=== PATIENT | female | born 1940 | race African-American/Black ===

== ENCOUNTER 2025-08-01 10:38 | Outpatient (AMB) | payer OTHER, SELFPAY ==
--- OUTSIDE RECORDS SUMMARY | 2024-12-14 05:30 | XMS_ITS ---
Author Organization [facility] Address [address] [place] [address] Care Team Providers Care Apartment Maintenance Supervisor Name Role Phone Darryn Mayberry Primary Care Provider Sarah Downs [phone] Encounters Encounter Location Date Provider Diagnosis [address] [address] 12/14/2024 Sarah Blanco Plan Of Treatment Next Appt Details Provider Name:Sarah rainey, 08/06/2025 10:00:00 AM, [address] [place], [address], Progress Notes * Kevin MORRISON MDOB:[birth year] (85 yo F)Acc No.[id number]:12/14/2024 Progress Note Patient: Artis PARISjoshua Schneider Provider: Phillip Blanco DPM :1940 A ge:84 Y S ex:Female Date:12/14/2024 Address:[address] [place], [place] [phone] Pcp:Darryn Mayberry Subjective: * Chief Complaints: * [...] 0 12/14/2024 Generated for Printi ng/Italia/Paigeitting on: 0 08/01/2025 01:18 PM EDT
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
[2025-08-01 10:47] VITALS: BP 120/62; PULSE 54
--- OUTSIDE RECORDS SUMMARY | 2025-08-01 13:18 | XMS_ITS | Patient Health Record ---
Author Organization [facility] Address [address] [place] [address] Care Team Providers Care Paint Spray Tender Name Role Phone Darryn Mayberry Primary Care Provider Sarah Downs Unavailable [phone] Allergies Allergen (clinical drug ingredient) Drug/Non Drug Allergy documented on EMR Reaction Allergy Type Onset Date Status oxycodone OxyContin stomach issues Drug Allergy Ac tive acetaminophen / oxycodone Percocet Unknown Drug Allergy Active Adhesive Unknown Allergy Active Latex Latex Unknown Allergy Active morphine Morphine Unknown Drug Allergy Active Perfume Perfume Unknown Allergy Active Reason For Referral No Information Medications Medication SIG (Take, Route, Frequency, Duration) Notes Start Date End Date Status Tylenol Arthritis Pain Not-Taking Eucerin . as directed External ly Apply Twice a day to Feet; Duration: 30 days 08/05/2015 Not-Taki ng Xarelto Not-Taking Orthopedic Extra Depth Shoes With Custom Heat Molded Multidensity Innersoles as directed Wear Daily; Duration: as needed 02/01/2020 Not-Taking Warfarin Sodium 6 MG Oral; Duration: 30 Not-Taking Omeprazole Not-Takin g Pravastatin Sodium 40 MG Oral; Duration: 30 Not-Taking Aspirin 81 MG 1 tablet Orally Once a day Not-Taking Doxycycline Hyclate 100 MG Oral; Duration: 2 Not-Taking Warfarin Sodium 5 MG 1 tablet Orally Onc e a day 08/02/2015 Not-Taking Erythromycin Not-Yury ing Coumadin Not-Taking Fluticasone Propionate 50 MCG/ACT Nasal; Duration: 30 PRN Active traMADol HCl 50 MG Oral; Duration: 3 Not-Taking Ibuprofen 600 MG Oral; Duration: 14 PRN Active Cephalexin 500 MG Oral; Duration: 5 Not-Taking Xarelto Not-Taking Diclofenac Sodium 50 MG Oral; Duration: 10 Not-Taking Ammonium Lactate 12 % APPLY 1 APPLICATIO N TO AFFECTED AREA TWICE A DAY EXTERNALLY TO FEET; Duration: 30 Active Sulfamethoxazole-TMP DS 800-160 MG Oral; Duration: 7 Not-Taking Immunizations Vaccine Route Administration Date Status Comme nts Influenza Unknown 08/24/2024 Administered COVID-19 Moderna Vaccine Unknown 02/24/2021 Administered 1st vaccine 01/06 03/28 Social History Tobacco Use: Social History Observation Description Date Details (start date - stop date) Never Smoker NA - NA Tobacco use other than smoking: Question Answer Notes Are you an other tobacco user? No Tobacco Control (Standard) Question Answer Notes Tobacco use: Nonsmoker Additional Findings: Tobacco non-user Current no nsmoker AUDIT-C (Standard) Question Answer Notes Did you have a drink containing alcohol in the p ast year? No Points 0 Interpretation Negative Problems Problem Type SNOMED Code ICD Code Onset Dates Problem Status W/U Status Risk Notes Problem Bilateral atherosclerosis of arteries of lower limbs (disorder) (19725559852792383 ) Unspecified atherosclerosis of [place] arteries of extremities, bilateral legs (I70.203) Active confirmed Problem Acquired hammer toe of left foot (9415386951647517) Other hammer toe(s) (acquired), left foot (M20.42) Active confirmed Problem Bilateral peripheral neuropathy of lower limbs (82639108612745004 ) Neuropathy (G62.9) Active confirmed Problem Localized, primary osteoarthritis of the ankle and/or foot (144801173) Arthritis of joint of lesser toe, left (M19.072) Active confirmed Vital Signs Blood pressure diastolic 80 mm Hg 05/14/2025 Height 5 ft 4 in in 05/14/2025 Blood pressure systolic 136 mm Hg 05/14/2025 Weight 222 lbs 05/14/2025 BMI 38.1 kg/m2 05/14/2025 Encounters Encounter Location Date Provider Diagnosis [facility] [place] [address] 10/02/2024 Sarah Blanco Other hammer toe(s) (acquired), left foot M20.42 ; Tinea unguium B35.1 ; Unspecified atherosclerosis of [place] arteries of extremities, bilateral legs I70.203 ; Pain in right toe(s) M79.674 ; Neuropathy G62.9 and Pain in left toe(s) M79.[address] [address] 12/18/2024 Sarah Blanco Other hammer toe(s) (acquired), left foot M20.42 ; Tinea unguium B35.1 ; Unspecified atherosclerosis of [place] arteries of extremities, bilateral legs I70.203 ; Pain in right toe(s) M79.674 ; Neuropathy G62.9 and Pain in left toe(s) M79.[address] [address] 03/05/2025 Sarah Blanco Unspecified atherosclerosis of [place] arteries of extremities, bilateral legs I70.203 ; Tinea unguium B35.1 ; Pain in right toe(s) M79.674 and Pain in left toe(s) M79.[address] [address] 05/14/2025 Sarah Blanco Unspecified atherosclerosis of [place] arteries of extremities, bilateral legs I70.203 ; Tinea unguium B35.1 ; Pain in right toe(s) M79.674 and Pain in left toe(s) M79.[address] [address] 08/03/2024 Sarah Blanco Assessments Encounter Date Diagnosis (ICD Code) Assessment Notes Treatment Notes Treatment Clinical Notes Section Notes 10/02/2024 Tinea unguium (ICD-10 - B35.1) 10/02/2024 Other hammer toe(s) (acquired), left foot (ICD-10 - M20.42) 12/18/2024 Other hammer toe(s) (acquired), left foot (ICD-10 - M20.42) 03/05/2025 Unspecified atherosclerosis of [place] arteries of extremities, bilateral legs (ICD-10 - I70.203) 05/14/2025 Unspecified atherosclerosis of [place] arteries of extremities, bilateral legs (ICD-10 - I70.203) 05/14/2025 Tinea unguium (ICD-10 - B35.1) 03/05/2025 Tinea unguium (ICD-10 - B35.1) 03/05/2025 Pain in right toe(s) (ICD-10 - M79.674) 10/02/2024 Unspecified atherosclerosis of [place] arteries of extremities, bilateral legs (ICD-10 - I70.203) 12/18/2024 Tinea unguium (ICD-10 - B35.1) 10/02/2024 Pain in right toe(s) (ICD-10 - M79.674) 12/18/2024 Unspecified atherosclerosis of [place] arteries of extremities, bilateral legs (ICD-10 - I70.203) 05/14/2025 Pain in right toe(s) (ICD-10 - M79.674) 03/05/2025 Pain in left toe(s) (ICD-10 - M79.675) 05/14/2025 Pain in left toe(s) (ICD-10 - M79.675) 12/18/2024 Pain in right toe(s) (ICD-10 - M79.674) 10/02/2024 Neuropathy (ICD-10 - G62.9) 10/02/2024 Pain in left toe(s) (ICD-10 - M79.675) 12/18/2024 Neuropathy (ICD-10 - G62.9) 12/18/2024 Pain in left toe(s) (ICD-10 - M79.675) Plan Of Treatment Pending Test Test Name Order Date [id number] NAIL, 6 OR MORE 10/14/2015 86982-URDSPKT NAIL, 6 OR MORE 08/05/2015 [id number] NAIL, 6 OR MORE 01/27/2016 90098-KLNRHNB NAIL, 6 OR MORE 04/20/2016 80866-Xfdsbgde Plate 10/14/2015 74138-Ygyjeldf Plate Each Additional 05/2015 09174-OYYG SKIN LESIONS, OVER 4 10/14/20 15 87075-JTJD SKIN LESIONS, OVER 4 01/27/20 16 79602-ZQKW SKIN LESIONS, OVER 4 08/05/20 15 14035-CLCF SKIN LESIONS, OVER 4 04/20/20 16 Next Appt Details Provider Name:Sarah rainey, 08/06/2025 10:00:00 AM, [address] [place] [address], [place], [address], Insurance Providers Payer Name Payer Address Payer Phone Subscriber Number Group Number Insured Name Patient Relationship to Insured Coverage Start Date Coverage End Date [facility] [employer] Claims [address] [place] [id number] Kevin Ware Self - patient is the insured Medical (General) History Medical History History ICD Code Arthritis Back,Hip,and Knee pain Broken bones Poor circulation Reflux Stomach ulcer Vascular phlebitis (clots) Joint implants/screws Cholesterol Surgical History Surgery Date(Month/Year) ankle surgery 1986 Hospitalization History Reason Date(Month/Year) [place] weakness, dizziness 01/2023 [facility]- wound 06/2021 [facility] - Blood clot left leg, Akira for 2 -3 weeks 05/22
--- OUTSIDE RECORDS SUMMARY | 2025-08-01 13:18 | XMS_ITS | Clinical Summary ---
Author Organization [facility] Address [address] [place] [address] Phone Care Team Providers Care Maintainer Operator Name Role Phone Sulma Moctezuma MD Primary Care Provider [phone] Surgical History Surgery Date Site/Laterality Comments OTHER SURGICAL HISTORY PROCEDURE: HISTORY OTHER; COMMENT: Repair L tib/fib fracture OTHER SURGICAL HISTORY PROCEDURE: HISTORICAL THYRO-DUCTAL CYST REMOVAL OTHER SURGICAL HISTORY PROCEDURE: HISTORY OTHER; COMMENT: Repair of ruptured musculotendinous cuff (eg, rotator cuff) open; chronic OTHER SURGICAL HISTORY PROCEDURE: HISTORY OTHER; COMMENT: Repair of L.Patella Medical History Medical History Date Comments Breast pain DX:Breast pain Calf pain DX:Calf pain Edema DX:Edema GERD (gastroesophageal reflux disease) DX:GERD (gastroesophageal reflux disease) H/O osteopenia DX:H/O osteopeni a Headache DX:Headache Low back pain DX:Low back pain Lymphedema DX:Lymphedema Obesity DX:Obesity ROCIO (obstructive sleep apnea) DX :ROCIO (obstructive sleep apnea) Prolapse of uterus DX:Prolapse o f uterus Uterine prolapse DX:Uterine prol apse Venous insufficiency of leg DX:V enous insufficiency of leg Family History Medical History Relation Name Comments Coronary artery disease Father Hypertension Father Other: Heart Attack Father Other: Heart disease Father Diabetes Mother Hypertension Mother Osteoporosis Mother Rheum arthritis Mother Diabetes Sister 1 Rheum arthritis Sister 2 Relation Name Status Comments Father Mother Sister 1 Sister 2 Social History Tobacco Use Types Packs/Day Years Used Date Smoking Tobacco: Never Smokeless Tobacco: Never Alcohol Use Standard Drinks/Week Comments Never 0 (1 standard drink = 0.6 oz pur e alcohol) Comments Unknown Sex and Gender Information Value Date Recorded Sex Assigned at Not on file Legal Sex Female 7:18 PM EST Gender Identity Not on file Sexual Orientation Not on file Obstetrics History Last Filed Vital Signs Vital Sign Reading Time Taken Comments Blood Pressure 140/62 02/18/2024 10:24 AM EDT Pulse 56 02/18/2024 10:24 AM EDT Temperature - - Respiratory Rate - - Oxygen Saturation - - Inhaled Oxygen Concentration - - Weight 104 kg (230 lb) 02/18/2024 10:24 AM EDT Height 162.6 cm (5' 4 ) 02/18/2024 10:24 AM EDT Body Mass Index 39.48 02/18/2024 10:24 AM EDT Plan of Treatment Upcoming Encounters Date Type Department Care Team (Late st Contact Info) Description 08/16/2025 12:30 PM EDT Evaluation [address] [address] Ame Montero, PT Health Maintenance Due Date Last Done Comments DTaP,Tdap,and Td Vaccines (1 - Tdap) 1960 Pneumococcal Vaccine: 50+ Ye ars (1 of 1 - PCV) 1991 Zoster Vaccines (1 of 2) 1991 RSV Immunization Adult Patie nts (1 - 1-dose 75+ series) 2016 Cholesterol Screening (Lipid Panel) 10/10/2022 Falls Risk Assessment 10/10/2022 Medicare Annual Wellness Visit 10/10/2022 Osteoporosis Screening (Bone Density Screening) 10/10/2022 Social Influencers of Health Screening 10/10/2022 Depression Screening 11/08/2024 COVID-19 Vaccine (1 - 2023-2 5 season) 2025 Influenza Vaccine (#1) 2025 HIB Vaccines Aged Out No longer eligi ble based on patient's age to complete this topic HPV Vaccines Aged Out No longer eligi ble based on patient's age to complete this topic Hepatitis A Vaccines Aged Out No long er eligible based on patient's age to complete this topic Hepatitis B Vaccines Aged Out No long er eligible based on patient's age to complete this topic IPV Vaccines Aged Out No longer eligi ble based on patient's age to complete this topic MMR Vaccines Aged Out No longer eligi ble based on patient's age to complete this topic Meningococcal ACWY Vaccine Aged Out N o longer eligible based on patient's age to complete this topic Meningococcal B Vaccine Aged Out No l onger eligible based on patient's age to complete this topic RSV Immunization Patients Un maryjo 20 months Aged Out No longer eligible b ased on patient's age to complete this topic Varicella Vaccines Aged Out No longer eligible based on patient's age to complete this topic Insurance MED[place] - [place] [employer] MEDICARE Member Subscriber Plan / Payer (Ef fective 2019-Present) Name:Kevin Morrison Relation to Subscriber:Self Name:Kevin Morrison Payer ID:[id number] Group ID:[id number] Type:Not on file Address: [address] [place] [id number] Care Teams Maintainer Operator Relationship Specialty Start Date End Date Sulma Moctezuma MD [address] [place], [place] PCP - General Internal Medicine 11/06/19
== END 2025-08-01 11:24 | disposition home or self-care (01) ==
LOC: HO.HCS 10:39
PROVIDERS: PCP Internal Medicine; Visit Provider Internal Medicine
DX: R06.02 Shortness of breath (principal)
CPT/HCPCS: 93010; 99204

== ENCOUNTER → 2025-08-01 10:38 | Outpatient (BNVA) | payer OTHER, SELFPAY | PROVIDERS: PCP Internal Medicine; Visit Provider Internal Medicine | DX: R06.02 Shortness of breath (principal); I11.0 Hypertensive heart disease with heart failure; I50.9 Heart failure, unspecified; I49.1 Atrial premature depolarization; I48.91 Unspecified atrial fibrillation; R60.9 Edema, unspecified; Z86.16 Personal history of COVID-19 | CPT/HCPCS: 93005; 99202 ==

== ENCOUNTER → 2025-09-12 10:02 | Outpatient (REF) | payer OTHER, SELFPAY ==
--- OUTSIDE RECORDS SUMMARY | 2024-04-17 06:00 | XMS_ITS ---
Author Organization [facility] Address [address] [place] [address] Care Team Providers Care Metal Turner Name Role Phone Darryn Mayberry Primary Care Provider Sarah Downs [phone] Encounters Encounter Location Date Provider Diagnosis [address] [address] 04/17/2024 Sarah Blanco Plan Of Treatment Next Appt Details Provider Name:Sarah rainey, 10/08/2025 10:00:00 AM, [address] [place], [address], Progress Notes * Kevin MORRISON MDOB:[birth year] (85 yo F)Acc No.[id number]:04/17/2024 Progress Note Patient: Artis PARISjoshua Schneider Provider: Phillip Blanco DPM :1940 A ge:84 Y S ex:Female Date:04/17/2024 Address:[address] [place], [place] [phone] Pcp:Darryn Mayberry Subjective: * Chief Complaints: * * Medical History: Objective: * Vitals: Assessment: Plan: * Treatment: * Images: * The named appointment provid er may or may not be the originator of this progress note, and it is not deemed complete until electronically signed by the appointment provider. Sign off status: Pending * Provider: Phillip Blanco DPM Date: 0 04/17/2024 Generated for Printi ng/Italia/Paigeitting on: 1 11/12/2024 11:33 AM EST
--- OUTSIDE RECORDS SUMMARY | 2024-06-01 05:30 | XMS_ITS ---
Author Organization [facility] Address [address] [place] [address] Care Team Providers Care Pad Machine Feeder Name Role Phone Darryn Mayberry Primary Care Provider Sarah Downs [phone] Encounters Encounter Location Date Provider Diagnosis [address] [address] 06/01/2024 Sarah Blanco Plan Of Treatment Next Appt Details Provider Name:Sarah rainey, 10/08/2025 10:00:00 AM, [address] [place], [address], Progress Notes * Kevin MORRISON MDOB:[birth year] (85 yo F)Acc No.[id number]:06/01/2024 Progress Note Patient: Artis PARISjoshua Schneider Provider: Phillip Blanco DPM :1940 A ge:84 Y S ex:Female Date:06/01/2024 Address:[address] [place], [place] [phone] Pcp:Darryn Mayberry Subjective: * Chief Complaints: * * Medical History: Objective: * Vitals: Assessment: Plan: * Treatment: * Images: * The named appointment provid er may or may not be the originator of this progress note, and it is not deemed complete until electronically signed by the appointment provider. Sign off status: Pending * Provider: Phillip Blanco DPM Date: 06/01/2024 Generated for Printi ng/Italia/Paigeitting on: 1 11/12/2024 11:33 AM EST
--- OUTSIDE RECORDS SUMMARY | 2024-08-07 08:30 | XMS_ITS ---
Author Organization [facility] Address [address] [place] [address] Care Team Providers Care Forestry Fire Aide Name Role Phone Darryn Mayberry Primary Care Provider Sarah Downs [phone] Encounters Encounter Location Date Provider Diagnosis [address] [address] 08/07/2024 Sarah Blanco Plan Of Treatment Next Appt Details Provider Name:Sarah rainey, 10/08/2025 10:00:00 AM, [address] [place], [address], Progress Notes * Kevin MORRISON MDOB:[birth year] (85 yo F)Acc No.[id number]:08/07/2024 Progress Note Patient: Artis PARISjoshua Schneider Provider: Phillip Blanco DPM :1940 A ge:84 Y S ex:Female Date:08/07/2024 Address:[address] [place], [place] [phone] Pcp:Darryn Mayberry Subjective: * Chief Complaints: * * Medical History: Objective: * Vitals: Assessment: Plan: * Treatment: * Images: * The named appointment provid er may or may not be the originator of this progress note, and it is not deemed complete until electronically signed by the appointment provider. Sign off status: Pending * Provider: Phillip Blanco DPM Date: 0 08/07/2024 Generated for Printi ng/Italia/Paigeitting on: 1 11/12/2024 11:33 AM EST
--- OUTSIDE RECORDS SUMMARY | 2024-12-14 04:30 | XMS_ITS ---
Author Organization [facility] Address [address] [place] [address] Care Team Providers Care Drum Sander Setter Name Role Phone Darryn Mayberry Primary Care Provider Sarah Downs [phone] Encounters Encounter Location Date Provider Diagnosis [address] [address] 12/14/2024 Sarah Blanco Plan Of Treatment Next Appt Details Provider Name:Sarah rainey, 10/08/2025 10:00:00 AM, [address] [place], [address], Progress Notes * Kevin MORRISON MDOB:[birth year] (85 yo F)Acc No.[id number]:12/14/2024 Progress Note Patient: Artis PARISjoshua Schneider Provider: Phillip Blanco DPM :1940 A ge:84 Y S ex:Female Date:12/14/2024 Address:[address] [place], [place] [address] Pcp:Darryn Mayberry Subjective: * Chief Complaints: * * Medical History: Objective: * Vitals: Assessment: Plan: * Treatment: * Images: * The named appointment provid er may or may not be the originator of this progress note, and it is not deemed complete until electronically signed by the appointment provider. Sign off status: Pending * Provider: Phillip Blanco DPM Date: 0 12/14/2024 Generated for Printi ng/Italia/Paigeitting on: 1 11/12/2024 11:33 AM EST
--- NOTE | 2025-09-12 10:09 | CA_ITS ---
Transthoracic Echocardiogram Patient (Last, First, Middle): Kevin Ware, Gender: F Date of : 1940 Age: 85 Procedure Date: 09/12/2025 Procedure Type: Transthoracic Echocardiogram Location: OP Height: 162.56 cm Weight: 127.01 kg BSA: 2.26 m2 Heart Rate: 60 bpm BP: 124 / 82 mmHg Inspector Balance Truing: SB Referring MD: Quinn Ruff MD Cosmetology Instructor: Gustavo Boss MD Symptoms: R06.02 - Shortness of breath Study Quality: Poor/up in wheelchair/BSA ECG Rhythm: Sinus Conclusions: - 1. Technically poor study due to positioning and patient's body habitus 2. On limited views LV ejection fraction probably greater than 50% Findings Procedure Information The quality of the study was technically difficult. The study quality is limited by patients body habitus. The patient declines contrast. Left Ventricle The left ventricle was not well visualized. Regional wall motion abnormalities can not be excluded due to suboptimal endocardial definition. Spectral Doppler is indicative of an impaired relaxation filling pattern. overall the quality of study is poor and left ventricular was poorly visualized. That could be mild left ventricular hypertrophy at least of the septum and LV EF probably greater than 50% on parasternal views. Right Ventricle The right ventricle was not well visualized. Atria The left atrium was not well visualized. Interatrial shunt cannot be excluded. The right atrium was not well visualized. Aortic Valve The aortic valve was not well visualized. Mitral Valve The mitral valve was not well visualized. Pulmonic Valve The pulmonic valve was not well visualized. Tricuspid Valve The tricuspid valve was not well visualized. Great Vessels The aorta was not well visualized. The pulmonary artery was not well visualized. Venous The inferior vena cava was not well visualized. Pericardium/Pleural The pericardium was not well visualized. Prior Study Comparison No prior study available for comparison. Measurements 2D Linear Measurements IVSd: 1.15 0.6-0.9/0.6-1.0 cm LVIDd: 4.81 3.9-5.3/4.2-5.9 cm LVIDd Index: 2.13 2.4-3.2/2.2-3.1 cm/m2 LVIDs: 2.98 2.0-3.6 cm LA Diam: 3.50 2.7-3.8/3.0-4.0 cm LAIDs Index: 1.55 1.5-2.3 cm/m2 LVOT Diam: 2.00 3.0+(-)1.3 cm Mitral Valve MV Pk E: 0.53 MV PK A: 0.81 MV Decel Time: 227.00 E/A: 0.70 E'Lateral: 4.57 E/E' Lat: 11.60 PHT: 67.00 MVA PHT: 3.28 Decel Wallace: 2.34 Aortic Valve AoV Pk Rubens: 1.23 AoV Pk Grad: 6.00 LVOT LVOT Pk Rubens: 0.79 LVOT Mn Rubens: 0.52 LVOT VTI: 0.16 LVOT Pk Grad: 2.00 LVOT Mn Grad: 1.00 LVOT Diam: 2.00 LVOT Area: 3.14 Diastolic Function MV Pk E: 0.53 MV Pk A: 0.81 E/A: 0.70 E' Laterial: 4.57 E/E' Lat: 11.60 Great Vessels Aorta Sinus of Valsalva: 3.00 2.0-3.5 cm Updated in Other Vendor System with Status of Final Gustavo Boss MD electronically signed on 09/12/2025 2:28:22 PM with status of Final
--- OUTSIDE RECORDS SUMMARY | 2025-09-12 11:33 | XMS_ITS | Clinical Summary ---
Author Organization 175 [facility] Address [address] [place] [address] Phone Care Team Providers Care Air Motor Repairer Name Role Phone Sulma Moctezuma MD Primary Care Provider Encounters Date Type Department Care Team Description 08/16/2025 12:30 PM EDT Evaluation [facility] [address] [phone] Ame Montero PT Muscular deconditioning (Primary Dx) from Last 3 Months Surgical History Surgery Date Site/Laterality Comments OTHER [...] 02/18/2024 10:24 AM EDT Plan of Treatment Health Maintenance Due Date Last Done Comments DTaP,Tdap,and Td Vaccines (1 - Tdap) 1959 Pneumococcal Vaccine: 50+ Years (2 of 2 - PCV) 05/06/2012 05/06/2011 Zoster Vaccines (2 of 3) 07/04/2014 05/09/2014 RSV Immunization Adult Patients (1 - 1-dose 75+ series) 2016 Cholesterol Screening (Lipid Panel) 10/10/2022 Falls Risk Assessment 10/10/2022 Medicare Annual Wellness Visit 10/10/2022 Osteoporosis Screening (Bone Density Screening) 10/10/2022 Social Influencers of Health Screening 10/10/2022 Depression Screening 11/08/2024 COVID-19 Vaccine ( season) 2025 09/17/2021, 02/19/2021, 01/22/2021 Influenza Vaccine (#1) 2025 , 10/21/2016, 09/09/2015, Additional history exists HIB Vaccines Aged Out No longer eligi [...] to complete this topic RSV Immunization Patients Under 20 months Aged Out No longer eligible based on patient's age to complete this topic Varicella Vaccines Aged Out No longer eligible based on patient's age to complete this topic Insurance [facility] Member Subscriber Plan / Payer (Ef fective 2019-Present) Name:Kevin Ware Relation to Subscriber:Self Name:Kevin Ware Payer ID:[id number] Group ID:[id number] Type:Not on file Address: [place] [address] [address] [place] [id number] Care Teams Air Motor Repairer Relationship Specialty Start Date End Date Sulam Moctezuma MD [address], [place] PCP - General Internal Medicine 11/06/19
--- OUTSIDE RECORDS SUMMARY | 2025-09-12 11:33 | XMS_ITS | Patient Health Record ---
Author Organization [facility] [place] Address [address] [place] [address] Care Team Providers Care Manager Recruitment Name Role Phone Darryn Mayberry Primary Care Provider Sarah Downs Unavailable [phone] Allergies Allergen (clinical drug ingredient) Drug/Non Drug [...] Duration) Notes Start Date End Date Status Omeprazole Not-Takin g Warfarin Sodium 6 MG Oral; Duration: 30 Not-Taking Ibuprofen 600 MG Oral; Duration: 14 PRN Active Cephalexin 500 MG Oral; Duration: 5 Not-Taking Fluticasone Propionate 50 MCG/ACT Nasal; Duration: 30 PRN Active Warfarin Sodium 5 MG 1 tablet Orally Onc e a day 08/02/2015 Not-Taking Erythromycin Not-Yury ing Aspirin 81 MG 1 tablet Orally Once a day Not-Taking Doxycycline Hyclate 100 MG Oral; Duration: 2 Not-Taking Xarelto Not-Taking Orthopedic Extra Depth Shoes With Custom Heat Molded Multidensity Innersoles as directed Wear Daily; Duration: as needed 02/01/2020 Not-Taking Tylenol Arthritis Pain Not-Taking Eucerin . as directed External ly Apply Twice a day to Feet; Duration: 30 days 08/05/2015 Not-Taki ng traMADol HCl 50 MG Oral; Duration: 3 Not-Taking Ammonium Lactate 12 % APPLY 1 APPLICATIO N TO AFFECTED AREA TWICE A DAY EXTERNALLY TO FEET; Duration: 30 Active Sulfamethoxazole-TMP DS 800-160 MG Oral; Duration: 7 Not-Taking Xarelto Not-Taking Diclofenac Sodium 50 MG Oral; Duration: 10 Not-Taking Coumadin Not-Taking Pravastatin Sodium 40 MG Oral; Duration: 30 Not-Taking Immunizations Vaccine Route Administration Date Status [...] atherosclerosis of arteries of lower limbs (disorder) (01880233478729726 ) Unspecified atherosclerosis of [place] arteries of extremities, bilateral legs (I70.203) Active confirmed Problem Acquired hammer toe of left foot (2289490396690078) Other hammer toe(s) (acquired), left foot (M20.42) Active confirmed Problem Bilateral peripheral neuropathy of lower limbs (47869954079588012 ) Neuropathy (G62.9) Active confirmed Problem Localized, primary osteoarthritis of the ankle and/or foot (684897732) Arthritis of joint of lesser toe, left (M19.072) Active confirmed Vital Signs Blood pressure diastolic 80 mm Hg 08/06/2025 Height 5 ft 4 in in 08/06/2025 Blood pressure systolic 130 mm Hg 08/06/2025 Weight 225 lbs 08/06/2025 BMI 38.62 kg/m2 08/06/2025 Encounters Encounter Location Date Provider Diagnosis [facility] [place] [address] 10/02/2024 Sarah Blanco Other hammer toe(s) (acquired), left foot M20.42 ; Tinea unguium B35.1 ; Unspecified atherosclerosis of [place] arteries of extremities, bilateral legs I70.203 ; Pain in right toe(s) M79.674 ; Neuropathy G62.9 and Pain in left toe(s) M79.[address] [address] 12/18/2024 Sarah Perica Other hammer toe(s) (acquired), left foot M20.42 ; Tinea unguium B35.1 ; Unspecified atherosclerosis of [place] arteries of extremities, bilateral legs I70.203 ; Pain in right toe(s) M79.674 ; Neuropathy G62.9 and Pain in left toe(s) M79.[address] [address] 03/05/2025 Sarah Perica Unspecified atherosclerosis of [place] arteries of extremities, bilateral legs I70.203 ; Tinea unguium B35.1 ; Pain in right toe(s) M79.674 and Pain in left toe(s) M79.[address] [address] 05/14/2025 Sarah Perica Unspecified atherosclerosis of [place] arteries of extremities, bilateral legs I70.203 ; Tinea unguium B35.1 ; Pain in right toe(s) M79.674 and Pain in left toe(s) M79.[address] [address] 08/06/2025 Sarah Perica Unspecified atherosclerosis of [place] arteries of extremities, bilateral legs I70.203 ; Tinea unguium B35.1 ; Pain in right toe(s) M79.674 and Pain in left toe(s) M79.675 Assessments Encounter Date Diagnosis (ICD Code) Assessment Notes Treatment Notes Treatment Clinical Notes Section Notes 10/02/2024 Tinea unguium (ICD-10 - B35.1) 10/02/2024 Other hammer toe(s) (acquired), left foot (ICD-10 - M20.42) 12/18/2024 Other hammer toe(s) (acquired), left foot (ICD-10 - M20.42) 03/05/2025 Unspecified atherosclerosis of [place] arteries of extremities, bilateral legs (ICD-10 - I70.203) 05/14/2025 Unspecified atherosclerosis of [place] arteries of extremities, bilateral legs (ICD-10 - I70.203) 08/06/2025 Unspecified atherosclerosis of [place] arteries of extremities, bilateral legs (ICD-10 - I70.203) 08/06/2025 Tinea unguium (ICD-10 - B35.1) 05/14/2025 Tinea unguium (ICD-10 - B35.1) 03/05/2025 Tinea unguium (ICD-10 - B35.1) 03/05/2025 Pain in right toe(s) (ICD-10 - M79.674) 10/02/2024 Unspecified atherosclerosis of [place] arteries of extremities, bilateral legs (ICD-10 - I70.203) 12/18/2024 Tinea unguium (ICD-10 - B35.1) 10/02/2024 Pain in right toe(s) (ICD-10 - M79.674) 12/18/2024 Unspecified atherosclerosis of [place] arteries of extremities, bilateral legs (ICD-10 - I70.203) 05/14/2025 Pain in right toe(s) (ICD-10 - M79.674) 03/05/2025 Pain in left toe(s) (ICD-10 - M79.675) 08/06/2025 Pain in right toe(s) (ICD-10 - M79.674) 05/14/2025 Pain in left toe(s) (ICD-10 - M79.675) 08/06/2025 Pain in left toe(s) (ICD-10 - M79.675) 12/18/2024 Pain in right toe(s) (ICD-10 - M79.674) 10/02/2024 Neuropathy (ICD-10 - G62.9) 10/02/2024 Pain in left toe(s) (ICD-10 - M79.675) 12/18/2024 Neuropathy (ICD-10 - G62.9) 12/18/2024 Pain in left toe(s) (ICD-10 - M79.675) Plan Of Treatment Pending Test Test Name Order Date [id number] NAIL, 6 OR MORE 10/14/2015 [id number] NAIL, 6 OR MORE 08/05/2015 [id number] NAIL, 6 OR MORE 01/27/2016 [id number] NAIL, 6 OR MORE 04/20/2016 [id number] Plate 10/14/2015 [id number] Plate Each Additional 05/2015 [id number] SKIN LESIONS, OVER 4 10/14/20 15 [id number] SKIN LESIONS, OVER 4 01/27/20 16 [id number] SKIN LESIONS, OVER 4 08/05/20 15 73376-RMCT SKIN LESIONS, OVER 4 04/20/20 16 Next Appt Details Provider Name:Sarah rainey, 10/08/2025 10:00:00 AM, [address] [facility], [place], [address], Insurance Providers Payer Name Payer Address Payer Phone Subscriber Number Group Number Insured Name Patient Relationship to Insured Coverage Start Date Coverage End Date [facility] [employer] Claims [address] [place] [id number] Kevin Ware Self - patient is the insured Medical (General) History Medical History History ICD Code Arthritis Back,Hip,and Knee pain Broken bones Poor circulation Reflux Stomach ulcer Vascular phlebitis (clots) Joint implants/screws Cholesterol Surgical History Surgery Date(Month/Year) ankle surgery 1986 Hospitalization History Reason Date(Month/Year) [facility] weakness, dizziness 01/2023 [facility]- wound 06/2021 [facility] - Blood clot left leg, [facility] for 2 -3 weeks 05/22
--- OUTSIDE RECORDS SUMMARY | 2025-09-12 11:34 | XMS_ITS | Data Portability ---
Author Organization [place] - [facility] Address [address] [place] [address] Care Team Providers Care Manager [employer] Name Role Phone PIPPA TY Primary Care Provider [phone] Assessment Encounter Date Assessment Date Assessment LastModified by Organization Details LastModified Time 11/24/2020 11/24/2020 Overview/History : This is a 80-year-old female whose past medical history significant for GERD, chronic back pain and a recent diagnosis of COVID. The family calls with concerns for symptomatic COVID. The patient was diagnosed approximately 2-3 weeks ago and family states symptoms were very slow to resolve and would like an evaluation. The patient complains of decreased appetite, loss of taste and smell, nausea and mild intermittent diarrhea. The patient was having low oxygen readings 1 week ago in the primary care recommended that family schedule a visit with [facility] for evaluation. The patient denies any fever, chills, difficulty breathing, shortness of breath, chest pain, pain with breathing, vomiting. Exam: Neuro intact, A&O x4. Answering simple questions appropriately. No acute distress noted. The symmetric. Equal grasps. Vital signs stable, afebrile Apical-regular, strong. Chronic BLE edema noted. Unable to palpate DP/PT due to edema Lung sounds diminished throughout however no rales, rhonchi or crackles noted Lymph nodes-no lymphedema or tenderness noted on exam ABD-soft, nondistended, nontender with hyperactive bowel sounds noted throughout Skin - moist, pink, intact mucous membranes, fair skin turgor DDx considered, but not limited to: Symptomatic COVID- Most likely given recent diagnosis of COVID, subjective symptoms however vital signs stable and benign exam findings Gastritis-possib le given subjective symptoms however patient does have a diagnosis of COVID, benign exam findings Mild dehydration-poss ible given recent diagnosis COVID, loss of appetite however patient does admit to fair fluid intake Work up/Results: BMP drawn and sent to lab Zofran prescribed for nausea Plan/Discussion: Called daughterAixa to discuss exam findings and treatment plan CDC guidelines discussed for COVID with both patient and daughter Tylenol as needed for fever/pain Zofran as needed for nausea Stay well hydrated Ensure/Glucerna supplements for decreased appetite until appetite returns to baseline Proper Personal Protective Equipment (PPE), including gloves, eye protection, N95 mask, gown, and shoe covers were donned and doffed appropriately and all equipment cleaned using approved technique with germicidal disposable wipes prior to and after care of this patient according to [facility]'s infection prevention protocols. [email or web address] Not available 11/24/2020 11:40:17 07/10/2021 07/10/2021 Time On Scene with Patient: 01:05:38 [id number] Not available 07/10/2021 18:09:39 Plan of Treatment Reminders Order Date Submit Date Provider Last Modified By Organization Details Last Modified Time Details Appointments None recorded. Lab BMP, serum or plasma 2020 021 [employer] [facility] (Centralized Electronic Ordering - All Locations), Patient Can Go To The Location Of Their Choice, [id number] 12:42:56 Referral None recorded. Procedures None recorded. Surgeries None recorded. Imaging None recorded. Medication Orders Tylenol Arthritis Pain 650 mg tablet,ext ended release 2020 021 [id number], [address] [place], [address], 18:18:31 Voltaren Arthritis Pain 1 % topical gel 2020 021 [facility]/Pharmacy #[id number], [address] [place], [address], 18:18:10 Zofran 4 mg tablet 2020 021 [facility]/Pharmacy #[id number], [address] [place], [address], 17:24:32 Patient TargetsNo targets recorded. Patient Instructions Encounter Date Encounter Id Patient Instructions Last Modified By Organization Details Last Modified Time 11/24/2020 [id number] You were seen fo r symptoms relating to COVID -I prescribed Zofran to be taken as needed for nausea -We checked labs at today's visit - We will call you with results in 1-2 days -Continue to drink plenty of fluids daily, stay well hydrated - Gatorade, pedialyte -Continue Tylenol as needed for fever/pain -I recommend Ensure/Glucerna supplement drinks atleast twice a day until appetite returns to baseline Your vitals signs and exam were [email or web address] Not available 11/24/2020 11:15:53 07/10/2021 [id number] osteoarthritis: care instructions Not available 07/10/2021 18:18:01 Reason for Referral None Reported. Results Created Date Observation Date Name Description Value Unit Range Abnormal Flag Note LastModifiedBy Organization Detail LastModifiedTime 11/24/1911/24/2020 BMP, serum or plasm a glucose 92 mg/dL (70-99 ) Not Available [facility] (Centralized Electronic Ordering - All Locations) Patient Can Go To The Location Of Their Choice, [id number] 11/24/2020 12:42:56 11/24/1911/24/2020 BMP, serum or plasm a BUN 7 mg/dL (8-23) low Not Available [facility] (Centralized Electronic Ordering - All Locations) Patient Can Go To The Location Of Their Choice, 11/24/2020 12:42:56 11/24/1911/24/2020 BMP, serum or plasm a creatinine 0.5 mg/dL (0.5-1 .0) Not Available [facility] (Centralized Electronic Ordering - All Locations) Patient Can Go To The Location Of Their Choice, 11/24/2020 12:42:56 11/24/1911/24/2020 BMP, serum or plasm a sodium 136 mmol/ L (133-1 45) Not Available [facility] (Centralized Electronic Ordering - All Locations) Patient Can Go To The Location Of Their Choice, 11/24/2020 12:42:56 11/24/1911/24/2020 BMP, serum or plasm a potassium 3.7 mmol/ L (3.6-5 .2) Not Available [facility] (Centralized Electronic Ordering - All Locations) Patient Can Go To The Location Of Their Choice, 11/24/2020 12:42:56 11/24/1911/24/2020 BMP, serum or plasm a chloride 102 mmol/ L (98-10 7) Not Available [facility] (Centralized Electronic Ordering - All Locations) Patient Can Go To The Location Of Their Choice, 11/24/2020 12:42:56 11/24/1911/24/2020 BMP, serum or plasm a bicarbonate 26 mmol/ L (22-29 ) Not Available [facility] (Centralized Electronic Ordering - All Locations) Patient Can Go To The Location Of Their Choice, 11/24/2020 12:42:56 11/24/1911/24/2020 BMP, serum or plasm a anion gap 8 (4-17) Not Available [facility] (Centralized Electronic Ordering - All Locations) Patient Can Go To The Location Of Their Choice, 11/24/2020 12:42:56 11/24/1911/24/2020 BMP, serum or plasm a calcium 8.9 mg/dL (8.6-1 0.5) Not Available [facility] (Centralized Electronic Ordering - All Locations) Patient Can Go To The Location Of Their Choice, 11/24/2020 12:42:56 11/24/1911/24/2020 BMP, serum or plasm a est GFR non 90 mL/mi n/1.7 3_M2 Creat inine based estim ated glome rular filtr ation rate (eGFR ) is calcu lated using the Chron ic Kidne y Disea se Epide miolo gy Colla borat ion (CKD- EPI). The CKD-E PI creat inine equat ion has not been valid ated in child elizabeth (<18 years ), pregn ant women or in some racia l or ethni c subgr oups other than Cauca sians and Afric an Ameri cans. Not Available [facility] (Centralized Electronic Ordering - All Locations) Patient Can Go To The Location Of Their Choice, 11/24/2020 12:42:56 11/24/1911/24/2020 BMP, serum or plasm a est GFR 104 mL/mi n/1.7 3_M2 Creat inine based estim ated glome ratnar filtr ation rate (eGFR ) is calcu lated using the Chron ic Kidne y Disea se Epide miolo gy Colla borat ion (CKD- EPI). The CKD-E PI creat inine equat ion has not been valid ated in child elizabeth (<18 years ), pregn ant women or in some racia l or ethni c subgr oups other than Cauca sians and Afric an Ameri cans. Not Available [facility] (Centralized Electronic Ordering - All Locations) Patient Can Go To The Location Of Their Choice, [id number] 11/24/2020 12:42:56 Result Notes None recorded. Procedures Surgical History Date Name Laterality Status Provider Name and Address Organization Details Recorded Time 11/24/19 21 Venipuncture - DH completed MARQUEZ HODGES NP [address] [place], [address], [place] [facility] 11/24/2020 11:15:17 Imaging Results None recorded. Procedure Notes None recorded. Medical Equipment None Reported. Allergies Allergen ID Allergen Name Allergen Category Reaction Reaction Severity Criticality Documentation Date Start Date Code Code System Note Provider Name and Address Organization Details Recorded Time 883455 oxycodone medicatio n Not available Not available Not available 11/24/2020 7804 RxNorm MARQUEZ HODGES NP [address] [place], [address], [place] [facility] 10:49:49 [id number] acetamino phen / oxycodone medicatio n Not available Not available Not available 11/24/2020 68974 3 RxNorm MARQUEZ HODGES NP [address] [place], [address], [place] [facility] 1 10:50:00 Medications Name Sig Start Date Stop Date Status Note LastModified by Organization Details LastModified Time amoxicillin 500 mg capsule TAKE 1 CAPSULE BY MOUTH EVERY 6 HOURS UNTIL FINISHED 11/24 completed Not Available Not Available Not Available silver sulfadiazin e 1 % topical cream APPLY TO AFFECTED AREA TWICE A DAY 11/24 completed Not Available Not Available Not Available atorvastati n 80 mg tablet TAKE 1 TABLET BY MOUTH EVERYDAY AT BEDTIME 07/10 completed Not Available Not Available Not Available nystatin 100,000 unit/mL oral suspension TAKE 5 MLS EVERY 6 HOURS. KEEP IN MOUTH LONG POSSIBLE BEFORE SWALLOWIN G active Not Available Not Available No t Available acetaminoph en 325 mg tablet TAKE 2 TABLETS BY MOUTH EVERY 4 HOURS NEEDED FOR PAIN 07/10 completed Not Available Not Available Not Available doxycycline hyclate 100 mg capsule TAKE 1 CAPSULE BY MOUTH TWICE A DAY WITH FOOD TO MINIMIZE ABDOMINAL DISCOMFOR T 07/10 completed Not Available Not Available Not Available cetirizine 10 mg tablet TAKE 1 TABLET BY MOUTH EVERY DAY active Not Available Not Available No t Available Stool Softener 100 mg capsule TAKE 1 CAPSULE BY MOUTH TWICE A DAY NEEDED FOR CONSTIPAT ION active Not Available Not Available No t Available azithromyci n 250 mg tablet TAKE 2 TABLETS BY MOUTH TODAY, THEN TAKE 1 TABLET DAILY FOR 4 DAYS 07/10 completed Not Available Not Available Not Available cephalexin 250 mg capsule TAKE 1 CAPSULE BY MOUTH 4 TIMES A DAY FOR 10 DAYS 11/24 completed Not Available Not Available Not Available ondansetron HCl 4 mg tablet TAKE 2 TABLETS BY MOUTH TWICE A DAY FOR 5 DAYS 07/10 completed Not Available Not Available Not Available Tylenol Arthritis Pain 650 mg tablet,exte nded release Take 2 tablet(s) every 8 hours by oral route as directed for 30 days. active Not Available Not Available No t Available amlodipine 2.5 mg tablet TAKE 1 TABLET BY MOUTH EVERY DAY active Not Available Not Available No t Available aspirin 81 mg tablet,colten yed release TAKE 1 TABLET BY MOUTH EVERY DAY active Not Available Not Available No t Available acetaminoph en 500 mg tablet TAKE 2 TABLETS BY MOUTH EVERY 6 HOURS NEEDED FOR PAIN 07/10 completed Not Available Not Available Not Available carvedilol 3.125 mg tablet TAKE 1 TABLET BY MOUTH TWICE A DAY active Not Available Not Available No t Available ibuprofen 200 mg tablet TAKE 3 TABLETS BY MOUTH EVERY 6 HOURS NEEDED FOR PAIN 07/10 completed Not Available Not Available Not Available ammonium lactate 12 % topical cream 1 APPLICATI ON TO AFFECTED AREA TWICE A DAY EXTERNALL Y TO FEET 30 DAYS active Not Available Not Available No t Available gabapentin 100 mg capsule PLEASE SEE ATTACHED FOR DETAILED DIRECTION S active Not Available Not Available No t Available epinephrine 0.3 mg/0.3 mL injection, auto-inject or INJECT 0.3 MG INTRAMUSC ULARLY ONCE active Not Available Not Available No t Available albuterol sulfate HFA 90 mcg/actuati on aerosol inhaler INHALE 2 PUFFS BY MOUTH EVERY 4 HOURS NEEDED active Not Available Not Available No t Available betamethaso ne dipropionat e 0.05 % topical ointment APPLY TO AFFECTED AREA EVERY DAY active Not Available Not Available No t Available Heartburn Relief (famotidine ) 10 mg tablet TAKE 1 TABLET BY MOUTH TWICE A DAY active Not Available Not Available No t Available Dakin's Solution 0.25 % APPLY TO WOUND FOR 15 MINUTES active Not Available Not Available No t Available chlorhexidi ne gluconate 0.12 % mouthwash PLEASE SEE ATTACHED FOR DETAILED DIRECTION S active Not Available Not Available No t Available Purelax 17 gram/dose oral powder DISSOLVE 17 GRAMS IN WATER BEFORE DRINKING DAILY active Not Available Not Available No t Available Voltaren Arthritis Pain 1 % topical gel APPLY 2 GRAMS TO THE AFFECTED AREA(S) BY TOPICAL ROUTE 4 TIMES PER DAY active Not Available Not Available No t Available Vitals Date Recorded Body temperature Respiratory rate Heart rate Oxygen saturation Oxygen saturation in Arterial blood by Pulse oximetry Systolic And Diastolic Provider Name and Address Organization Details Last Updated DateTime 1 98.7 [degF] 32 /min 64 /min 94 % 94 % 130/64 mm[Hg] Not Available [facility] 1 10:56:50 Date Recorded Oxygen saturation Oxygen saturation in Arterial blood by Pulse oximetry Body temperature Respiratory rate Heart rate Systolic And Diastolic Provider Name and Address Organization Details Last Updated DateTime 1 98 % 98 % 97.5 [degF] 18 /min 62 /min 136/74 mm[Hg] Not Available [facility] 1 18:09:05 Social History Question Answer Notes LastModified by Organizat ion Details LastModified Time Tobacco Smoking Status Never Smoker MARQUEZ HODGES NP [address], [place], [address], [place] [facility] 11/24/2020 10:53:21 Do You Have An Advance Directive? No Information not available 07/10/2021 What Is Your Code Status? Full Code Information not available 07/10/2021 Within The Past 12 Months, Has It Happened That The Food You Bought Just Didn't Last And You Didn't Have Money To Get More. No Information not available 07/10/2021 Within The Past 12 Months, Have You Worried That Your Food Would Run Out Before You Got Money To Buy More. No Information not available 07/10/2021 Fall Risk: Do You Feel Unsteady When Standing Or Walking? Yes Information not available 07/10/2021 We Know That How And When People Interact With Friends And Family Can Be Very Different From Person To Person. How Often Do You Have The Opportunity To See Or Talk To People That You Care About And Feel Close To? (Ex: Talking To Friends On The Phone Or Visiting Friends Or Family Or Going To Adventist Or Club Meetings) 1 Or 2 Times Per Week Information not available 07/10/2021 Excessive Alcohol Or Drug Use No Information not available 07/10/2021 Does This Patient Have A PCP? Yes Information not available 07/10/2021 We Know From Many Of Our Patients That Covering All Of Their Costs Can Be Difficult At Times. This Can Cause Stress And Impact Health. In The Past Year, Have You Been Unable To Get Any Of The Following When It Was Really Needed? No Information not available 07/10/2021 What Is Your Housing Situation Today? I Have Housing Information not available 07/10/2021 Would You Like Help Connecting To Resources? None Information not available 07/10/2021 Sex: Unknown Functional Status Question Answer Note LastModified by Organizat ion Details LastModified Time Do you use any illicit or recreational drugs? No Information not available 07/10/2021 Do you or have you ever used any other forms of tobacco or nicotine? No Information not available 07/10/2021 Mental Status None recorded. Family History Relationship Description Onset Age of this Age Resolved Age Notes LastModified by Organization Details LastModified Time Father Coronary arterioscler osis [email or web address] Not available 2020 10:53:43 Medical History Condition Response Coronary Artery Disease N Depression N COPD N Diabetes N Cancer N Stroke N Asthma Y High Cholesterol Y Pulmonary Embolism N Hypertension Y Kidney Disease N Gynecological HistoryNo gynecological history recorded. Obstetrics History GPAL:G 0 P 0 0 0 0 Past Encounters Encounter ID Performer Location Encounter Start Date Encounter Closed Date Diagnosis/Indication Diagnosis SNOMED-CT Code Diagnosis ICD10 Code Diagnosis IMO Codes Diagnosis Note [id number] MARQUEZ CAREYTIFFANIE [facility] [address] [facility] [address] 11/24/2020 10:44:53 11/25/2020 17:45:34 COVID-19 [id number] U07.1 [id number] Alexus Ferrer NP [facility] [address] [place] [address] 07/10/2021 18:08:23 07/15/2021 17:01:39 Low back pain 753257999 M54.5 Overview/H istory: Patient is an 81 year old AA female who presents with chief complaint of exacerbati on of low back pain x several days. Denies mechanism of injury. Patient history significan t for chronic low back pain for which she takes Tylenol/Ar thritis Tylenol minimally. She has a history of obesity and osteoarthr itis. Exam: Afebrile 97.5. HRR 62, s1, s2. LSCTA bilaterall y, no WOB. Moist mucous membranes, no lymphadenp othay. ABD obese, Non tender + BS x 4 quadrants. No CVA tenderness , no suprapubic tenderness . spinal cord in alignment, no deformity. tenderness when palpating over left lumbar region. Intact neuro exam. DDx considered , but not limited to:exacerb ation osteoarthr itis considered , likelyLumb ar strain considered , cannot rule outfx considered , unlikely, no deformityc auda equina considered , no numbness on exam Work up/Results : Exam Plan/Discu ssion: Schedule arthritis per box instructio ns. Wt. loss. Voltarin 1% 4 x per day. Follow up with PCP if needed. Discussed acute s/s to report to ED. Proper Personal Protective Equipment (PPE), including gloves, eye protection and masks were donned and doffed ariel zhu and all equipment cleaned using approved technique with germicidal disposable wipes prior to and after care of this patient according to [facility]'s infection prevention protocols. In order to obtain further informatio n and compare any laboratory results/va lues, I have accessed old patient records. This informatio n was pertinent in my medical decision making today. Osteoarthritis [id number] M19.90 Health Concerns Section Related Observation LastModified by Organization Detai ls LastModified Time None Recorded Concern Status LastModified by Organization Details LastModified Time None Recorded Advance Directives Directive N: Payers Insurance Date Sequence Insurance Name Policy Number Policy Merlos Covered Member ID Merlos Member ID Guarantor Name 07/10/2021 2 [place] [facility] Kevin Ware [id number] Kevin Chaz 07/17/2021 1 [facility] - DOS PRIOR TO 2023 - DUAL ELIGIBLE (MEDICARE REPLACEMENT/ADV ANTAGE - HMO) Kevin Chaz [id number] Kevin Chaz 07/10/2021 1 *SELF PAY* Kevin Chaz [id number] Kevin Chaz 07/17/2021 2 [place] [facility]az [id number] Kevin Chaz Notes Date Note Type Note Provider Name and Address Organization Details Recorded Time 11/24/2020 text/html COVID-19 Symptom s March 2020Reported by Patient This is a 80-year-old female, new to [employer] [facility], whose family calls with concerns for symptomatic COVID. The patient's past medical history includes GERD, chronic back pain and recent diagnosis of COVID approximately 2-3 weeks ago. The patient states she continues to have decreased appetite, loss of taste and smell, nausea and mild intermittent diarrhea. She denies any difficulty breathing, denies chest pain, pain with breathing, fever, chills, body aches. She does admit to good fluid intake. She denies any vomiting. Family is concerned because she has been 2 weeks now and her symptoms were very slow to resolve. Primary care [facility] MARQUEZ HODGES NP [address], [place], [address], [place] [facility] 11/24/2020 11:40:27 07/10/2021 text/html Patient is a 81 year old alert AA female who is known to and new to this provider. Patient chief complaint is lower back pain for several days. Denies any mechanism of injury. Denies radiating pain. Patient medical history significant for asthma, hyperlipidemia, HTN, morbid obesity, GERED, chronic back pain, chronic right knee pain I need a knee replacement, osteoarthritis. Alexus Ferrer, TIFFANIE [address], [place], [address], [place] [facility] 07/10/2021 20:01:09 OBGyn Episode No OBEpisode recorded.
--- OUTSIDE RECORDS SUMMARY | 2025-09-12 11:34 | XMS_ITS | Data Portability ---
Author Organization [facility] Address [address] [place] [phone] Care Team Providers Care Senior Ui Designer Name Role Phone HIM CCA OTHER Assessment Encounter Date Assessment Date Assessment LastModified by Organization Details LastModified Time 11/08/2022 11/08/2022 Called to brice klein 82 y/o f w HTN whose daughter reports pt has had flu like symptoms x 2 days. Symptoms include intermittent HILL, prod cough, sore throat, chills and weakness. Tolerating PO without difficulty. On exam, febrile, lungs clear b/l Rapid COVID+, flu - URI symptoms 2/2 COVID positivity, given age and comorbidities and overall hemodynamic state will treat as outpatient with Paxlovid regimen. Continued supportive care encouraged. Alarm symptoms reviewed, advised to call 911 if onset. Care team, please f/u w patient in 2-3 days. [email or web address] Not available 11/08/2022 14:18:50 Plan of Treatment Reminders Order Date Submit Date Provider Last Modified By Organization Details Last Modified Time Details Appointments None recorded. Lab rapid flu (A+B) 2023 024 [facility], [address] [place] [address], [id number] 4 17:59:38 rapid SARS CoV 2 Ag, QL IA, respiratory specimen [address], [id number] 3 19:05:23 rapid flu (A+B) 2022 023 [facility], [address] [place] [address], [id number] 3 19:06:32 Referral None recorded. Procedures None recorded. Surgeries None recorded. Imaging electrocard iogram 2023 [facility], [address] [place] [address], [id number] 22:12:58 Medication Orders ipratropium 0.5 mg-albutero l 3 mg (2.5 mg base)/3 mL nebulizatio n soln 2023 [facility]armacy #[id number], [address] [place], [address], 17:59:28 albuterol sulfate HFA 90 mcg/actuati on aerosol inhaler 2023 024 [facility]/Pharmacy #[id number], [address] [place], [address], 4 17:59:33 prednisone 20 mg tablet 2023 024 [facility]/Pharmacy #[id number], [address] [place], [address], 17:59:33 prednisone 20 mg tablet 2023 024 [facility]/Pharmacy #[id number], [address] [place], [address], 4 17:59:28 Zyrtec 10 mg tablet 2023 024 [facility]/Pharmacy #[id number], [address] [place], [address], 17:59:33 dextrometho rphan-guaif enesin 10 mg-100 mg/5 mL oral syrup 2023 024 [facility]/Pharmacy #[id number], [address] [place], [address], 4 17:59:32 albuterol sulfate HFA 90 mcg/actuati on aerosol inhaler 2022 023 [facility]/Pharmacy #[id number], [address] [place], [address], 3 15:02:49 Paxlovid 300 mg (150 mg x 2)-100 mg tablets in a dose pack 2022 023 [facility]/Pharmacy #[id number], [address] [place], [address], 3 14:18:35 Patient TargetsNo targets recorded. Patient InstructionsNo instructions recorded. Reason for Referral None Reported. Results Created Date Observation Date Name Description Value Unit Range Abnormal Flag Note LastModifiedBy Organization Detail LastModifiedTime 08/10/20 24 08/10/2024 rapid flu (A+B) Flu negati ve Not Available Main - [facility] ed [address] [place] [address], [phone] 08/10/2024 17:53:58 08/10/20 24 08/10/2024 elect sadia petersongr am No observ ation record ed. gbaci [facility] [address] [place] [address], [phone] 08/10/2024 22:12:57 Result Notes None recorded. Medical Equipment None Reported. Allergies Allergen ID Allergen Name Allergen Category Reaction Reaction Severity Criticality Documentation Date Start Date Code Code System Note Provider Name and Address Organization Details Recorded Time 6418 latex environme nt,medica tion Not available Not available Not available 08/10/2024 79065 91 RxNorm Not Available [facility] - production 03:35:05 6419 Substance with morphinan structure and opioid receptor agonist mechanism of action (substanc e) medicatio n Not available Not available Not available 08/10/2024 38525 9000 SNOMED DANA GONZALEZ MD [address] [place] [address],[address], [place], [address], [employer] 4 17:14:27 6420 hydrochlo rothiazid e medicatio n Not available Not available Not available 08/10/2024 5487 RxNorm DANA GONZALEZ MD [address] [place] [address],[address], [place], [address], [employer] 4 17:14:51 6421 Keflex medicatio n Not available Not available Not available 08/10/2024 20104 7 RxNorm DANA GONZALEZ MD [address] [place] [address],[address], [place], [address], [employer] 17:15:11 6422 losartan medicatio n Not available Not available Not available 08/10/2024 38902 RxNorm DANA GONZALEZ MD [address] [place] [address],[address], [place], [address], [employer] 17:15:41 6423 oxycodone medicatio n Not available Not available Not available 08/10/2024 7804 RxNorm DANA GONZALEZ MD [address] [place] [address],[address], [place], [address], [employer] 17:15:55 6424 vancomyci n medicatio n Not available Not available Not available 08/10/2024 70431 RxNorm DANA GONZALEZ MD [address] [place] [address],[address], [place], [address], [employer] 17:16:10 6425 kiwi fruit extract food Not available Not available Not available 08/10/2024 41642 01 RxKev GONZALEZ MD [address] [place] [address],[address], [place], [address], [employer] 17:16:23 6426 apple extract food Not available Not available Not available 08/10/2024 11625 65 RxNorm DANA GONZALEZ MD [address] [place] [address],[address], [place], [address], [employer] 17:16:52 7119 morphine medicatio n Not available Not available Not available 09/05/2024 7052 RxNorm Not Available [facility] - production 03:35:05 Medications Name Sig Start Date Stop Date Status Note LastModified by Organization Details LastModified Time dicloxacilli n 500 mg capsule TAKE 1 CAPSULE BY MOUTH EVERY 6 HOURS FOR 5 DAYS active Not Available Not Available No t Available atorvastatin 80 mg tablet TAKE 1 TABLET BY MOUTH EVERYDAY AT BEDTIME active Not Available Not Available No t Available ipratropium 0.5 mg-albuterol 3 mg (2.5 mg base)/3 mL nebulization soln Inhale 3 mL every day by nebulizatio n route for 1 day. 2023 active Not Available Not Available Not Avai lable nystatin 100,000 unit/gram topical ointment TOPICALLY 2 TIMES A DAY, TO RASH IN NAVAL AND BODY FOLDS active Not Available Not Available N ot Available prednisone 20 mg tablet TAKE 2 TABLETS BY MOUTH EVERY DAY FOR 4 DAYS active Not Available Not Available No t Available warfarin 2.5 mg tablet TAKE UP TO 3 TABLETS BY MOUTH DAILY DIRECTED BY THE [facility] active Not Available Not Available No t Available Zyrtec 10 mg tablet Take 1 tablet every day by oral route as needed for 30 days. 2023 active Not Available Not Available Not Avai lable dextromethor allen-guaifen esin 10 mg-100 mg/5 mL oral syrup TAKE 10 MILLILITERS BY MOUTH EVERY 6 HOURS NEEDED active Not Available Not Available No t Available omeprazole 40 mg capsule,colten yed release TAKE 1 CAPSULE BY MOUTH EVERY DAY active Not Available Not Available No t Available aspirin 81 mg tablet,delay ed release TAKE 1 TABLET BY MOUTH EVERY DAY active Not Available Not Available No t Available tramadol 50 mg tablet TAKE 1 TABLET BY MOUTH EVERY 12 HOURS NEEDED FOR PAIN active Not Available Not Available No t Available carvedilol 3.125 mg tablet TAKE 1 TABLET BY MOUTH TWICE A DAY active Not Available Not Available No t Available acetaminophe n ER 650 mg tablet,exten ded release TAKE 2 TABLETS BY MOUTH EVERY 8 HOURS NEEDED FOR MODERATE PAIN active Not Available Not Available No t Available famotidine 20 mg tablet TAKE 1 TABLET BY MOUTH TWICE A DAY active Not Available Not Available No t Available Triple Antibiotic 3.5 mg-400 unit-5,000 unit/gram topical ointment APPLY TO AFFECTED AREA TWICE A DAY active Not Available Not Available No t Available epinephrine 0.3 mg/0.3 mL injection, auto-injecto r INJECT 0.3 MG INTRAMUSCUL NINO ONCE active Not Available Not Available No t Available albuterol sulfate HFA 90 mcg/actuatio n aerosol inhaler INHALE 2 PUFFS EVERY 4 HOURS BY INHALATION ROUTE NEEDED active Not Available Not Available No t Available Vitamin D3 25 mcg (1,000 unit) capsule TAKE 1 CAPSULE BY MOUTH EVERY DAY active Not Available Not Available No t Available chlorhexidin e gluconate 0.12 % mouthwash SWISH 15ML IN MOUTH UNDILUTED FOR 30 SECS THEN SPIT. USE AFTER BREAKFAST AND BEFORE BEDTIME active Not Available Not Available No t Available diclofenac 1 % topical gel APPLY 2 GRAMS TO THE AFFECTED AREA(S) BY TOPICAL ROUTE 4 TIMES PER DAY active Not Available Not Available No t Available [facility] with Large Mask USE DIRECTED. active Not Available Not Available No t Available Xarelto DVT-PE Treatment 30-Day Starter 15 mg(42)-20 mg(9) tablet pack TAKE 15 MG TWICE DAILY WITH FOOD FOR 21 DAYS FOLLOWED BY 20 MG ONCE DAILY WITH FOOD. active Not Available Not Available No t Available Paxlovid 300 mg (150 mg x 2)-100 mg tablets in a dose pack TAKE 3 TABLETS BY MOUTH TWICE A DAY FOR 5 DAYS active Not Available Not Available No t Available Vitals Date Recorded Body temperature Body weight Heart rate Oxygen saturation Oxygen saturation in Arterial blood by Pulse oximetry Body height Respiratory rate Body height Oxygen saturation Oxygen saturation in Arterial blood by Pulse oximetry Body temperature Respiratory rate Provider Name and Address Organization Details Last Updated DateTime 3 100.4 [degF] 97999.2 8 g 65 /min 95 % 95 % 162.56 cm 18 /min 162.56 cm 95 % 95 % 100.4 [degF] 18 /min Not Available [employer] [facility] 3 14:27:49 Date Recorded Body weight Heart rate Systolic And Diastolic Systolic And Diastolic Provider Name and Address Organization Details Last Updated DateTime 11/08/2022 80815.28 g 65 /min 116/89 mm[Hg] 116/89 mm[Hg] Not Available [facility] [employer] 11/08/2022 14:27:49 Date Recorded Respiratory rate Oxygen saturation Oxygen saturation in Arterial blood by Pulse oximetry Body height Heart rate Body temperature Body weight Heart rate Body temperature Body height Oxygen saturation Oxygen saturation in Arterial blood by Pulse oximetry Provider Name and Address Organization Details Last Updated DateTime 3 18 /min 100 % 100 % 162.56 cm 56 /min 98.3 [degF] 67234.6 88 g 56 /min 98.3 [degF] 162.56 cm 100 % 100 % Not Available [employer] 3 15:37:44 Date Recorded Body weight Respiratory rate Systolic And Diastolic Systolic And Diastolic Provider Name and Address Organization Details Last Updated DateTime 11/15/2022 61683.68 8 g 18 /min 129/68 mm[Hg] 129/68 mm[Hg] Not Available [facility] 3 15:37:44 Date Recorded Oxygen saturation Oxygen saturation in Arterial blood by Pulse oximetry Heart rate Respiratory rate Body weight Body temperature Systolic And Diastolic Provider Name and Address Organization Details Last Updated DateTime 3 99 % 99 % 62 /min 16 /min 88063.3 2 g 98.4 [degF] 156/96 mm[Hg] Not Available [employer] [facility] [employer] 3 14:17:26 Date Recorded Respiratory rate Body weight Heart rate Oxygen saturation Oxygen saturation in Arterial blood by Pulse oximetry Body temperature Systolic And Diastolic Provider Name and Address Organization Details Last Updated DateTime 3 16 /min 84795.2 4 g 86 /min 98 % 98 % 98 [degF] 140/84 mm[Hg] Not Available [employer] [facility] [employer] 3 14:59:59 Social History None recorded. Functional Status None recorded. Mental Status None recorded. Family History Nothing Reported. Medical History No medical history recorded. Gynecological HistoryNo gynecological history recorded. Obstetrics History GPAL:G 0 P 0 0 0 0 Past Encounters Encounter ID Performer Location Encounter Start Date Encounter Closed Date Diagnosis/Indication Diagnosis SNOMED-CT Code Diagnosis ICD10 Code Diagnosis IMO Codes Diagnosis Note [id number] Va Lindsey MD Main - [facility] [address] [place] [phone] 02/28/2022 13:25:06 07/14/2022 15:20:44 Pain in limb [id number] M79.609 Pt with chronic leg pain attributed to osteoarthr itis p/w worsening pain w/o trauma or deformity. Recommend to continue APAP and NSAIDs as recommende d by PCP and follow up for considerin g of further mgmt. No acute indication for imaging given atraumatic . No symptoms to suggest septic arthritis, pathologic fracture. If pain worsens or fails to improve consider ED eval. Red flag symptoms reviewed, pt instructed to call 911 if condition worsens or new symptoms develop, pt expressed understand ing. I have reviewed and agree with the assessment and plan as documented by the student services dean. I provided real time medical direction for this encounter and was immediatel y available to provide additional phone based assistance as needed. [id number] Sami Robison MD Main - [facility] [address] [place] [phone] 05/01/2022 11:45:48 08/04/2022 16:27:47 Osteoarthritis [id number] M19.90 [id number]-gvm r-old female's family called because she was complainin g of increased right hip and leg pain for several days with no history of trauma. She has establishe d osteoarthr itis treated with Tylenol. Today when the student services dean arrived she was back to her baseline with no acute complaints . She was advised to continue her current treatment plan and follow up with her PCP. The patient agreed with this plan. [id number] Josee Pulido MD Main - [facility] [address] [place] [phone] 11/08/2022 12:43:08 11/10/2022 16:12:25 Viral upper respiratory tract infection [id number] J06.9 COVID-19 [id number] U07.1 [id number] Anuj Greco MD Main - [facility] [address] [place] [phone] 11/15/2022 15:00:08 11/17/2022 11:06:35 COVID-19 [id number] U07.1 As noted, we were called to see this patient regarding concerns of COVID-19. Evaluation in the field was performed by my student services dean colleague, as noted above, I provided real-time direction and supervisio n for this visit.The evaluation revealed a patient in no distress, but with some cough and subjective dyspnea at times. Notably, she has not taken the paxlovid due to difficulty swallowing pills. She has a history of asthma that can flare with infections . She does not have an inhaler and requests one. Impression : Resolving COVID-19 with no indication of complicati ons or high risk for them. Plan: Reassuranc e, albuterol inhaler to be used PRN Q4h. Primary care, consider check-in call the week of 11/16. Dispositio n:We discussed the diagnostic uncertaint y of home visits and the risk associated with this. In this case, the patient and I felt this to be an acceptable and reasonable amount of risk given the benefit of avoiding an ED visit. We discussed the need to seek care urgently/e mergently in the setting of any new or worsening serious symptoms, particular ly fever, worsened trouble breathing. [id number] Sami Robison MD Main - [address] [phone] 02/08/2023 14:17:14 02/09/2023 22:45:38 Chronic ulcer of lower extremity [id number] L97.909 This 83-year-ol d female was seen for a recurring wound on the back of her right leg associated with lymphedema . She is scheduled to be seen by her PCP tomorrow. I ordered that the wound be dressed and she will follow-up with her PCP tomorrow. The patient agreed with this plan. [id number] Sami Robison MD [facility] - [address] [phone] 04/09/2023 14:59:57 04/13/2023 15:06:34 Ankle ulcer [id number] L97.309 This 83-year-ol d female is seen in follow-up for a chronic left ankle pressure sore. Today the wound looked clean and a new dressing was applied. She will follow-up with her PCP and wound nurse. The patient agreed with this plan. [id number] DANA GONZALEZ MD [facility] - [address] [phone] 08/10/2024 17:45:53 08/11/2024 00:43:53 Acute bronchitis [id number] J20.9 Evaluation in the field was performed by my student services dean colleague, as noted above, I provided real-time direction and supervisio n for this visit. The evaluation revealed 84 Y/O female with complains of cough, sore throat, runny nose, sneezing and headache. PT reports that she has been feeling weak, with SOB, chest palpitatio ns, and wheezing since Monday 08/06. Pt denies CP, nausea, vomiting. Has been tolerating PO well . Had Covid home test that was negative VS stable. Afebrile SpO2 99 % on RAFlu negativeEC G with no acute St-T changes suggestive of acute ischemia Exam : Speaking in full sentences, NAD . Lungs with good aeration but mild wheezing per discussion with the student services dean. ABD area was soft and non tender. No JADE Impression :Acute bronchitis Plan:-Duon eb 3 mg x1 was administer ed by the student services dean. Rx for albuterol MDI with spacer sent to her pharmacy. Patient advised to use it every 4-6 hours while awake for the next 3-5 days.-Pred nisone 40 mg daily x5 days first dose given by the student services dean. -Patient has no fever, making bacterial infection less likely. She reports an adverse reaction to an antibiotic given to her previously for similar symptoms (unable to recall the name).-Rx for cough suppressan t and Zyrtec (in case there is a component of seasonal allergies) sent to her pharmacy.- Patient advised to continue supportive measures, including tea with honey.-Red flags discussed with the patient. Primary care, consider__ _ Dispositio n: We discussed the diagnostic uncertaint y of home visits and the risk associated with this. In this case, the patient and I felt this to be an acceptable and reasonable amount of risk given the benefit of avoiding an ED visit. We discussed the need to seek care urgently/e mergently in the setting of any new or worsening serious symptoms, particular ly fever, chills, worsening cough, SOB, CP, nausea, vomiting , weakness or any other complains. Health Concerns Section Related Observation LastModified by Organization Detai ls LastModified Time None Recorded Concern Status LastModified by Organization Details LastModified Time None Recorded Advance Directives Directive None Recorded Payers Insurance Date Sequence Insurance Name Policy Number Policy Merlos Covered Member ID Merlos Member ID Guarantor Name 08/11/2024 1 [facility] - DOS PRIOR TO 2023 - DUAL ELIGIBLE (MEDICARE REPLACEMENT/ADV ANTAGE - HMO) Kevin Ware [id number] Kevin Ware 08/11/2024 1 [facility] [employer] - DOS ON OR AFTER 2023 - DUAL ELIGIBLE - CARE HOME OPTIONS AND ONE CARE (MEDICARE REPLACEMENT/ADV ANTAGE - HMO) Kevin Ware [id number] Kevin Ware Notes Date Note Type Note Provider Name and Address Organization Details Recorded Time 11/08/2022 text/html [facility] Nursing Assessment: Reason For Request: URI Patient Reports: Cough, fever greater than 2 days ; History of asthma, increased use of inhaler; Cough Denies: Lower extremity swelling COPD COVID Exposure Sputum increase Shortness of breath with exertion Pain with inspiration Chief Complaints: URI PMH: Hypertension Allergies: Latex Comments: Daughter calling for mother with flu like symptoms , cough/ congestion , clear. Member feels warm to the touch , unsure about temp, no chills. Member denies N/V/D . Member has controled asthma, gets winded when talking , no home 02 [employer] is sick > waiting for COVID test .................. .................. .................. .................. .................. .................. .................. ............... Wellness Assistant Note: Sent to a call for a pt complaining of cough/congestion. SC6 arrives on scene, pt is alert and oriented. Airway is patent. Pt's TEMPLER [employer] was sick for a few days last week, but did not test for Covid or Flu. Pt complains of intermittent headache, sinus pain, sore throat, productive cough(yellow mucus), baseline intermittent sob with exertion, chills, and general weakness x 2 days. Pt denies dizziness, cp, n/v/d, abd pain, or loc. Pt does not have a thermometer, and wasn't sure if she had a fever. TEMPLER HEAD states pt is exhibiting similar symptoms to TEMPLER HEAD's symptoms last week. Pt has daily help from family in residence upstairs and [employer]. Pt has been vaccinated for Covid, and had Covid once in 2020. Pt denies using Paxlovid or being hospitalized last time she had Covid. Pt uses Mapap prn, and is prescribed Carvedilol, but rarely takes it. Pt has been eating/drinking. BP:116/89, P:65, RR:18, SpO2:95% RA, T:100.4; Head: bilateral sinus tenderness; Lung sounds: clear bilaterally; Abdomen: soft, non-tender, no distention; Skin: pink, warm, dry; Rapid flu test: neg, Rapid Covid test: positive; [facility] consulted. [facility] sends script to pt's pharmacy. Pt is advised to isolate as much as possible, rest, stay hydrated, and consider using cough/cold medication for hypertsive pts if needed. Red flags discussed. Pt has no further questions. .................. .................. .................. .................. .................. .................. .................. ............... Disposition: Fulfilled Josee Pulido MD [address] [place] [address],[address], [place], [phone], [facility] 11/10/2022 08:39:49 11/15/2022 text/html [facility] Nursing Assessment: Reason For Request: Covid f/u visit Patient Reports: COVID Exposure; Sputum increase ; Cough; Shortness of breath with exertion Denies: Cough, fever greater than 2 days History of asthma, increased use of inhaler COPD Pain with inspiration Chief Complaints: Cough, Shortness of Breath/Dyspnea, URI PMH: Hypertension Allergies: Latex Comments: Member daughter calling in to place a follow up visit. Member seen 11/08 by [facility], tested +covid and was prescribed Paxlovid. Member still symptomatic, has a productive cough and sob. Denies fever/chills, no n/v/d. Would like members symptoms re-evaluated. .................. .................. .................. .................. .................. .................. .................. ............... Wellness Assistant Note: Sent to a call for a pt who tested positive for Covid on 11/08. Family requests follow up visit. SC6 arrives on scene, pt is alert and oriented. Airway is patent. Pt [facility] Pt states she didn't take Paxlovid because she has trouble swallowing pills. Pt reports feeling better. Pt states productive cough is intermittent and mucus has changed from yellow to clear. Pt complains of intermittent sob at baseline, and a wound on RLQ she noticed approx 3 days ago. [facility]. Pt reports wound is healing. Pt denies headache, dizziness, cp, n/v/d, abd pain, fever, or loc. Pt has been using Mucinex, and requests a prescription for Albuterol inhaler. Pt has history of Asthma, hasn't had an inhaler for approx 1 year, but feels it would be helpful due to Covid diagnosis. BP:129/68, P:56, RR:18, SpO2:100% RA, T:98.3; Lung sounds: clear bilaterally; Abdomen: RLQ near wound is tender; Wound is dry with slight erythema around edges, no edema or heat noted; Skin: pink, warm, dry; [facility] advises pt to continue symptomatic treatment. [facility] sends script to pt's pharmacy for inhaler. Red flags discussed. Pt has no further questions. .................. .................. .................. .................. .................. .................. .................. ............... Disposition: Fulfilled Anuj Greco MD [address] [place] [address],[address], [place], [phone], [employer] 11/15/2022 16:33:26 02/08/2023 text/html ROS as noted in the [facility] Nursing Assessment: Reason For Request: pt has a wound on her right leg. Wound is painful and her leg is dark. No falls to report. boat cleaner states it just happens sometimes no further information provided. Chief Complaints: Wound Care PMH: Hypertension Allergies: Latex Comments: Spoke to member daughter. Member has lymphedema, and occasionally gets wounds on her leg. She currently has a wound on her right leg with small amount of drainage, per daughter legs discolored at baseline and have been for quite sometime, she does endorse the area being painful. She is awaiting PCP appt to get a wound care referral. She would like momes leg assessed Sami Robison MD [address] [place] [address],[address] [facility], [place], [phone], [employer] 02/08/2023 14:22:47 04/09/2023 text/html ROS as noted in the [facility] CRC Nursing Assessment: Reason For Request: wound Chief Complaints: Wound Care, Pain PMH: Hypertension Allergies: Latex Comments: Verified identity by Member has a wound on right leg. Member has VNA but no one has come out in 8 days. The CP are working on VNA> Member has supplies in the home., right leg near ankle for a couple months . MEdium size , no F/c/n/v/d .................. .................. .................. .................. .................. .................. .................. ............... Wellness Assistant Note From Oral Clarke: Pt seen for wound care on L ankle. Pt had been being seen by the wound care clinic, but they have not been out to see her in 9 days. Pt's daughter is actively trying to get a new wound care nurse. Pt [facility]. Pt has pressure sore on her L ankle. No erythema/edema. Neg NVD, Neg fevers. Wound area was cleaned and dressed. Compression stocking put back on per Pt request. Evaluated R leg as she had a previous wound. Wound looked healed and was best left to air. Educated Pt on warning signs. Educated Pt on supportive care. Wellness Assistant Allergies: Latex .................. .................. .................. .................. .................. .................. .................. ............... Disposition: Fulfilled Sami Robison MD [address] [place] [address],[address], [place], [address], [facility] [employer] [facility] 04/09/2023 15:04:05 08/10/2024 text/html ROS as noted in the HPI HPI: Member states she is congested, coughing, mild shortness of breathing sneezing and runny nose. Member denies any fevers. Symptoms have been present for a few days. [facility] .................. .................. .................. .................. .................. .................. .................. ............... CRC Nurse Triage Notes (Eduardcherellegabihilary Ana): Chief Complaints: Shortness of Breath/Dyspnea, Cough PMH: Hypertension Allergies: Morphine, Latex Other Allergies: Hydrochlorothiazid e, apples, Keflex, kiwi, losartan, Morphine, oxycodone, Vanco Comments: CRC RN did not require any additional information to process this visit. Wellness Assistant Organization Information for [facility] Legal Name: [employer]. Address: [address] [place] [address], Manufacturing Job Titles: Matt WILHELM No.: [id number] Wellness Assistant POC Test Results from [facility] EKG (17:34:44) EKG test performed. Attachments uploaded as part of this test result can be found under Documents section. Rapid influenza antigen (17:34:52) Flu: - Attachments uploaded as part of this test result can be found under Documents section. EKG (17:41:17) EKG test performed. Attachments uploaded as part of this test result can be found under Documents section. .................. .................. .................. .................. .................. .................. .................. ............... Wellness Assistant Note From Jama Price: Was dispatched for a 84 Y/O female complaining of a cough, sore throat, and headache. [facility] PT was found sitting in her chair. PT is A/Ox4. PT reported she has been feeling weak, with SOB, chest palpitations, and wheezing since Wednesday. PT vitals were obtained and an assessment was performed. PT HEENT, JVD, pupils, and skin were normal. PT lung sounds were clear with bilateral chest rise and fall. PT did have a productive cough with wheezing. PT ABD area was soft and non tender. PT has normal CSMs in all her extremities. PT was test for the flu and negative. EKG was obtained. [facility] was contacted. [facility] ordered duo neb treatment, 40mg of prednisone and prescribed the PT an inhaler and prednisone at her local pharmacy. PT understood and crew cleared. [facility] Lab Orders: rapid flu (A+B): Performed Wellness Assistant Allergies: Latex, Morphine .................. .................. .................. .................. .................. .................. .................. ............... Disposition: Irvin GONZALEZ MD [address] [facility],[address], [place], [address], [employer] 08/10/2024 22:24:08 OBGyn Episode No OBEpisode recorded.
== END ==
LOC: HO.CARD 10:02
PROVIDERS: PCP Internal Medicine; Visit Provider Internal Medicine
DX: R06.02 Shortness of breath (principal)
CPT/HCPCS: 93306

== ENCOUNTER → 2025-09-12 10:09 | Outpatient (BNV) | payer OTHER, SELFPAY | PROVIDERS: PCP Internal Medicine; Visit Provider Internal Medicine Cardiovascular Disease | DX: I42.2 Other hypertrophic cardiomyopathy (principal); R06.02 Shortness of breath | CPT/HCPCS: 93306 ==